=== PATIENT | male | born 1990 | race Caucasian/White ===

== ENCOUNTER 2017-01-15 22:25 | Emergency (ER) | payer SELFPAY ==
[2017-01-15] MEDS ORDERED: KETOROLAC 60 MG/2 ML VIAL IM ONE (22:39)
[2017-01-15 22:40] VITALS: RESP 20; TEMP 98.3
--- NOTE | 2017-01-15 22:45 | PDOC ---
Foot / Ankle Injury - General Chief Complaint: Lower Extremity Problem/Injury Stated Complaint: RIGHT ANKLE PAIN Date Seen by Provider: 01/15/17 Time Seen by Provider: 22:40 Source: POSITIVE: Patient, Spouse Exam Limitations: POSITIVE: No limitations Nurse's Notes Reviewed & Considered: Yes - History of Present Illness Initial Comments: Patient was working [employer] earlier today when he was chased, stepped in a hole, turned his ankle. He had difficulty ambulating subsequently with pain in the right lateral malleoli radiating into the upper foot. He denies any other injury. Have you received a tetanus shot in the past 10 years?: Yes Location: Right Ankle Timing: REPORTS: Abrupt Duration: 4-6 hours Severity: Moderate Quality: REPORTS: "Pain", Sharpness, Stabbing, Throbbing, Tenderness Location at Time of Onset: REPORTS: Home Context: REPORTS: Fall, Twist Modifying Factors: REPORTS: Movement, Rest Associated Symptoms: REPORTS: Swelling, Popping Sensation Any Prior Injuries Related to Current Complaint?: No - Patient Allergies Allergies/Adverse Reactions: Allergies Allergy/AdvReac Type Severity Reaction Status Date / Time amoxicillin [Amoxicillin] Allergy Unknown NOT Verified 01/15/17 22:31 APPLICABLE Penicillins Allergy ITCHING Verified 01/15/17 22:31 - Patient Home Medications Home Medications: Home Medications NK [No Home Medications Reported] 12/13/13 Past Medical History - heen HEENT History: Denies History Cardiovascular History: Denies History Respiratory History: Denies History Gastrointestinal History: Denies History Genitourinary History: Denies History Endocrine History: Denies History Musculoskeletal History: Denies History Prosthesis or Implant: No Neurological History: Denies History Blood Disorders: Denies History Psychiatric History: Denies History Cancer History: Denies History In Past Year Been Physically Harmed or Verbally Threatened: No History of MDRO: No Tobacco Use: Never Smoker Alcohol Use: Heavy How much alcohol do you normally drink a day?: Every other day, sometimes daily Substance Use Type: None Previous Surgical History: Yes Type / Date of Surgery: Left knee, left arm and wrist, left lower leg x 2 Significant Family History: No pertinent family hx ROS - Limitations ROS Limitations: No Limitations Constitution: REPORTS: Denies Symptoms Cardiovascular: REPORTS: Denies Cardiac Symptoms Respiratory: REPORTS: Denies Resp Symptoms Neurological: REPORTS: Denies Neuro Symptoms Gastrointestinal: REPORTS: Denies GI Symptoms Endocrine: REPORTS: Denies Symptoms Musculoskeletal: REPORTS: Joint Pain (Right ankle) Genitourinary: REPORTS: Denies Symptoms Eyes: REPORTS: Denies Symptoms ENT: REPORTS: Denies Symptoms Skin: REPORTS: Denies Skin Symptoms Lympathic: REPORTS: Denies Lympathic Symptoms Immunologic: POSITIVE: Denies Symptoms Psychiatric: POSITIVE: Denies Psych Symptoms Foot / Ankle Exam - General Appearance General Appearance: POSITIVE: Alert, Cooperative, No Acute Distress - Extremities Foot: POSITIVE: Soft Tissue Tenderness (right ankle), Bony Tenderness, Swelling , Ecchymosis, Limited ROM d/t Pain Ankle: POSITIVE: Soft-Tissue Tenderness, Bony Tenderness (right ankle), Swelling , Ecchymosis, Limited ROM Gait: POSITIVE: Limited by Pain Neuro: POSITIVE: Sensation Normal, Motor Normal Vascular: POSITIVE: No Vascular Compromise, Full Pulses Tendons: POSITIVE: Tendon Function Normal Skin: POSITIVE: Warm, Dry - HEENT HEENT: POSITIVE: Head Inspection Nml, Eyes Inspection Nml, Ears Inspection Nml, Nose Inspection Nml, PERRL, EOMI - Neck / Back Neck / Back: Normal Inspection, Non-Tender - Respiratory / CVS Respiratory / CVS: POSITIVE: Chest Non-Tender, No Respiratory Distress - Abdomen Abdomen: Denies Tenderness: (All Quadrants) Foot / Ankle Progress - Results Reviewed by me Pain Medication Addressed: POSITIVE: Yes Xrays/CTs/US Reviewed by me: Yes Discussed with Radiologist: No Radiology Results: POSITIVE: Right, Ankle, Normal - Patient's Progress Re-Examine Time:: 23:25 Status: POSITIVE: Improved MDM / ED Course: Patient was evaluated, x-ray of his right ankle were obtained. My review of his x-ray shows no acute bony abnormality. My assessment is ankle sprain. Plan is discharge home, Aircast, crutches, bear weight as tolerated, elevation ice and rest, follow-up in 7-10 days if there is no improvement. He receives a prescription for Wells, instructions in care of his ankle. - Consult Counseled: POSITIVE: Patient, Family, RE: Radiology Results, RE: DX, RE: Need for F/U Patient Care Time - Estimated PCT Patient Care Time (In Minutes): 15 Vital Signs - Recent Vital Signs Vital Signs: Vital Signs (Last 8 hours) Temp Pulse Resp BP Pulse Ox 01/15/17 22:25 98.3 F 97 20 97/60 95 - VS Reviewed Vital Signs Reviewed: Yes Discharge Clinical Impression: Sprain of ankle Discharge Disposition: Discharged to Home Condition: Stable Patient Instructions Given at Discharge: Ankle Sprain (ED)
--- NOTE | 2017-01-16 08:55 | DI ---
XR ANKLE COMPLETE MIN 3VW,01/15/2017 10:39 PM: Clinical History: Right ankle injury. Previous Exam: December 01, 2007 Findings: 3 views of the right ankle are obtained, and demonstrate anatomic alignment without fractures. The perera rrounding soft tissues are unremarkable. Impression: Normal right ankle.
== END 2017-01-15 23:48 | disposition home or self-care (01) ==
LOC: ER 22:25
DX: S93.401A Sprain of unspecified ligament of right ankle, initial encounter (principal); W17.89XA Other fall from one level to another, initial encounter
CPT/HCPCS: 73610; 96372; 99282 ×2; J1885

== ENCOUNTER 2018-10-26 14:16 | Observation (INO) ==
[2018-10-26] MEDS ORDERED: Sodium Chloride 0.9% 1,000 ML PRIMARY IV ONE (14:44)
[2018-10-26 14:55] LABS: BASOPHILS # (AUTO) 0.03 10*3/UL; BASOPHILS % (AUTO) 0.2 % (0-1); BLOOD UREA NITROGEN 15 mg/dL (7-22); BUN/CREATININE RATIO 13.63 (6-20); EOSINOPHILS # (AUTO) 0.13 10*3/UL; Hematocrit [HCT] 46.7 % (42.0-52.0); Hemoglobin [HGB] 16.3 g/dL (14.0-18.0); LIPASE 78 IU/L (23-300); LYMPHOCYTES # (AUTO) 2.11 10*3/uL; MEAN CORPUSCULAR HEMOGLOBIN 31.5 PG (27-31); MEAN CORPUSCULAR HGB CONC 34.9 g/dL (33-37); MEAN CORPUSCULAR VOLUME 90.2 FL (80-90); MEAN PLATELET VOLUME 10.4 FL (7.4-12.2); MONOCYTES # (AUTO) 0.86 10*3/UL (0.3-0.8); MONOCYTES % (AUTO) 6.3 % (5-15); NEUTROPHILS # (AUTO) 10.39 10*3/UL; NEUTROPHILS % (AUTO) 76.6 % (50-80); RED BLOOD COUNT 5.18 10^6/uL (4.70-6.10); SERUM ALBUMIN 5.1 g/dL (3.5-4.8)
[2018-10-26 14:57] LABS: PLATELET MORPHOLOGY COMMENT NORMAL MORPHOLOGY (NORM); RBC MORPHOLOGY COMMENT NORMAL MORPHOLOGY (NORM); WBC MORPHOLOGY COMMENT NORMAL MORPHOLOGY (NORM)
--- NOTE | 2018-10-26 15:56 | DI ---
CT Abdomen/Pelvis W Contrast 10/26/2018 2:45 PM History: [facility] [place] DI ^Abdominal Pain Comparison: None. Technique: Imaging was performed with a multi-detector CT scanner. Data acquisition was obtained from the dome of the diaphragm through the pubic symphysis without oral contrast and after the uneventful administration of 75 mL of Isovue intravenous contrast material. Multiplanar reformations were perfo rmed. Findings: The distal appendix is dilated up to 10 mm in greatest dimension. Although there is some in traluminal gas, there is mild appendiceal wall enhancement and periappendiceal fat stranding. These f indings raise concern for acute appendicitis in the correct clinical setting. There is no extralumina l gas or formed fluid collection to suggest rupture. There is normal CT appearance of the liver, gallbladder, adrenal glands, spleen, kidneys, and pancrea s. Hollow viscus organs demonstrate normal course and caliber. There is no free intraperitoneal air o r fluid. No abdominopelvic lymphadenopathy is present. Vascular structures are intact. There is no in guinal or abdominal wall hernia. The osseous structures are within normal limits for the patient's age. There is mild bilateral gyneco mastia. The lung bases are clear. Mild distention of the distal esophagus could represent normal peristalsis, although a hiatal hernia or esophageal diverticulum could have a similar appearance. Impression: 1. There are findings concerning for acute appendicitis. Clinical and laboratory correlation is recom mended. 2. Mild distention of the distal esophagus could represent normal peristalsis, although a hiatal janet ia or esophageal diverticulum could have a similar appearance. 3. Mild bilateral gynecomastia.
[2018-10-26] MEDS ORDERED: Ertapenem Inj 1 GM in Sodium Chloride 0.9% 100 ML IV ONE (16:13)
[2018-10-26 16:19] LABS: BILIRUBIN,URINE NEGATIVE (NEG); CLARITY,URINE CLEAR (CLEAR); COLOR,URINE YELLOW (Y); GLUCOSE, URINE (UA) NEGATIVE (NEG); OCCULT BLOOD,URINE NEGATIVE (NEG); PROTEIN,URINE NEGATIVE (NEG); UROBILINOGEN,URINE 0.2 EU/dL (0.2)
[2018-10-26 16:20] LABS: URINE SAMPLE TYPE VOIDED SPECIMEN
[2018-10-26] MEDS ORDERED: LIDOCAINE MPF 2% - 5 ML (20 MG/1 ML) ONE (16:45)
[2018-10-26] MEDS ORDERED: MIDAZOLAM 5 MG/1 ML ONE (16:45)
[2018-10-26] MEDS ORDERED: fentaNYL Inj 250 MCG/5 ML VIAL ONE (16:45)
[2018-10-26] MEDS ORDERED: PROPOFOL 10 MG/1 ML (200 MG/20 ML) VIAL IV ONE (16:45)
[2018-10-26] MEDS ORDERED: ROCURONIUM 10 MG/1 ML - 5 ML VIAL IVP ONE (16:48)
--- NOTE | 2018-10-26 16:51 | PDOC ---
HPI - History of Present Illness Date of Service: 10/26/18 Time of Service: 16:47 Chief Complaint: 28-year-old male that started having right lower quadrant abdominal pain on 10/24/2018. Changes progressively got worse. History of Present Illness: Patient's been having pain since Friday. The pain began progressively worse. Patient came in to be evaluated by Dr. Nelson the emergency room. Patient has had a CAT scan which was read by Dr. Bill as early appendicitis. Patient has an elevated white count at 13,000. He denies any fevers. Past Medical History Tobacco Use: Never Smoker In the Past 12 Months, Have Used or Abuse Any of the Following Substance: None Medication / Allergies Home Medications: Home Medications Medication Instructions Recorded Confirmed Type NK [No Home Medications Reported] 12/13/13 10/26/18 History Allergies/Adverse Reactions: Allergies Allergy/AdvReac Type Severity Reaction Status Date / Time amoxicillin [Amoxicillin] Allergy Unknown NOT Verified 10/26/18 15:09 APPLICABLE Penicillins Allergy ITCHING Verified 10/26/18 15:09 Exam - Vitals Vital Signs: Vital Signs Temperature 97.3 F Temperature Source Temporal Artery Scan Pulse Rate [Bilateral Radial] 77 Respiratory Rate 18 Blood Pressure [Left Arm] 139/109 Pulse Ox 96 Oxygen Delivery Method Room Air Height 5 ft 9 in Weight 188 lb - General General Appearance: No Acute Distress, Cooperative - Head Head Exam: Normocephalic - Eye Eye Exam: POSITIVE: PERRL, EOMI - Neck Neck Exam: Full ROM, No Tenderness - Respiratory Respiratory Exam: POSITIVE: Clear to Auscultation - Bilaterally, Breathing Non Labored - Cardiovascular Cardiovascular Exam: POSITIVE: No Murmur - GI/Abdominal GI/Abdominal Exam: POSITIVE: Normal Bowel Sounds, Non Distended, Soft, Positive for RUQ Pain, No Hepatomegaly, Splenomegaly Results - Labs CBC and BMP: 10/26/18 14:32 10/26/18 14:32 Assessment and Plan - Patient Problems (1) Acute appendicitis with localized peritonitis Current Visit: Yes Status: Acute Code(s): K35.30 - Acute appendicitis with localized peritonitis, without perforation or gangrene - Assessment / Plan Additional Assessment/Plan Details: I discussed with the patient treatment options was gluteal antibiotic therapy versus surgery. He like to have surgery. Also discussed lab scopic versus open he would like laparoscopic. Risks benefits were discussed he understands these. Given 1 dose of Invanz prior to going to surgery.
[2018-10-26] MEDS ORDERED: BUPivacaine Inj 0.25% PF - 10ml vial ONE (16:58)
[2018-10-26] MEDS ORDERED: Lactated Ringers 1,000 ML PRIMARY IV ONE (17:00)
[2018-10-26] MEDS ORDERED: Lactated Ringers 1,000 ML PRIMARY IV SCH (17:00)
[2018-10-26] MEDS ORDERED: SUFENTANIL 50 MCG/1 ML ONE (17:22)
[2018-10-26] MEDS ORDERED: KETAMINE HCL 100 MG/2 ML SYRINGE IV ONE (17:24)
[2018-10-26] MEDS ORDERED: KETOROLAC 30 MG/1 ML VIAL ONE (17:51)
[2018-10-26] MEDS ORDERED: SUGAMMADEX SODIUM 200 MG/2 ML VIAL IV ONE (17:56)
--- NOTE | 2018-10-26 18:11 | GEN.OPNOTE ---
Operative Note Surgery Date: 10/26/18 Preoperative Diagnosis: Acute appendicitis with localized peritonitis Postoperative Diagnosis: Same Procedure: Laparoscopic appendectomy Surgeon: Godfrey Saucedo MD Anesthesia Provider: Nghia Linares CRNA Anesthesia Type: General Estimated Blood Loss (mL): 10 Fluids: Lactated Ringer's please see anesthesia notes EMR. 1 g of Invanz given in the emergency department. Toradol given please see anesthesia notes Pathology: Appendix sent Indications: Acute appendicitis Findings: Acute appendicitis nonperforated Complications: None Operative Summary: Patient is brought in operative room placed in supine position given endotracheal anesthesia. Prepped draped sterile fashion. Timeout performed per protocols. I then infiltrated 0.5 Marcaine below the umbilicus. Small incision was made. Veress needle is inserted. Water flowed freely into the Veress needle. Negative aspiration for enteric contacts. Pneumoperitoneum obtained by a insufflating CO2. After an adequate pneumoperitoneum I used the Visiport place a 10 mm trocar. I did inject laparoscopic visualization a 5 mm placed suprapubically. (Patient did void prior to coming to surgery). I then inspected the patient had acute appendicitis but not perforated. 10 mm trochars placed in the left lower quadrant. Appropriate anesthesia was obtained. Appendix is grasped. I then used the ligature to cut through ligated the mesoappendix. Put 3 Endoloops on to next to the base of the cecum and one slightly higher. Using the ligature I cauterize and cut the appendix. We then irrigated until clear. We reinspected is no active bleeding. I removed the appendix is a 10 mm trocar. We reinspected there is no apparent injury. No bleeding. I deinsufflated the pneumoperitoneum. Removed all trochars. There is only 5 mL defects in the fascia so they were not closed. Closed the skin using 4-0 Monocryl simple interrupted subcuticular stitches. Steri-Strips applied. Sterile dressings applied. Patient transferred recovery room in stable condition. Patient Problems - Patient Problem List (1) Acute appendicitis with localized peritonitis Current Visit: Yes Status: Acute Code(s): K35.30 - Acute appendicitis with localized peritonitis, without perforation or gangrene Category: Medical Procedure Codes - Surgical Procedures Primary Surgical Procedure: [id number] : Appendectomy, Lap
--- NOTE | 2018-10-26 18:22 | CRNA.PROGR ---
Anesthesia Time - Procedure/Recovery Time Start Date: 10/26/18 End Date: 10/26/18 Anesthesia : Time In: 17:12 Anesthesia : Time Out: 18:21 Anesthesia : Total Time: 69 - Total Anesthesia Time Total Anesthesia Time (minutes): 69 - Other Weight: 85.275 kg Height: 5 ft 9 in Body Mass Index (BMI): 27.7 Physical Status: P1 Anesthesia Type: General Anesthesia : ET
--- NOTE | 2018-10-26 18:22 | CRNA.PROGR ---
Anesthesia Recovery Phase I - Post Anesthesia Evaluation Patient's Condition on Arrival in Phase I: Stable Patient's Condition on Arrival in Phase II: Stable Pain Level: 1
[2018-10-26] MEDS ORDERED: HYDROmorphone 2 MG/1 ML IVP PRN (18:23)
[2018-10-26] MEDS ORDERED: ONDANSETRON 4 MG/2 ML VIAL IVP PRN (18:23)
[2018-10-26] MEDS ORDERED: LIDOCAINE W/ SODIUM BICARB 0.5 ML SYR SUBD PRN (18:23)
[2018-10-26] MEDS ORDERED: D5-LR 1,000 ML PRIMARY IV SCH (19:02)
[2018-10-26] MEDS ORDERED: NALOXONE 0.4 MG/1 ML VIAL IVP PRN (19:02)
[2018-10-26] MEDS ORDERED: HYDROcodone-APAP 5 MG -325 MG TABLET PO PRN (19:02)
[2018-10-26] MEDS ORDERED: KETOROLAC 15 MG/1 ML VIAL IVP PRN (19:02)
[2018-10-26] MEDS ORDERED: MORPHINE SULFATE 2 MG/1 ML IVP PRN (19:02)
--- NOTE | 2018-10-27 01:12 | PDOC ---
Abdomen/Flank HPI - General Chief Complaint: Abdomen Pain Stated Complaint: RIGHT LOWER QUADRANT PAIN Date Seen by Provider: 10/26/18 Time Seen by Provider: 14:35 Source: POSITIVE: Patient Exam Limitations: POSITIVE: No limitations Nurse's Notes Reviewed & Considered: Yes - History of Present Illness Initial Comments: The patient is a 28-year-old male. He presents to the emergency room complaining of a 2-3 day history of right sided abdominal pain. No known fevers or chills. No nausea, vomiting, diarrhea, dysuria, hematuria, hematochezia, hematemesis or fevers. He states he has had no previous abdominal surgery. He's on no medications and has no known chronic medical problems. Body Location Affected: REPORTS: Abdomen (Right lower quadrant) Timing: REPORTS: Gradual, Getting Worse Duration: >24 hours (3-4 days) Severity: Moderate Quality: REPORTS: "Pain" Abdominal Pain Onset Location: REPORTS: RLQ Abdominal Pain Radiation: REPORTS: No radiation Context: REPORTS: None Modifying Factors: improves with: Movement, Walking Associated Symptoms: DENIES: Denies symptoms, Back pain, Bloody Emesis, Chest pain, Coffee Grounds Emesis, Chills, Diaphoresis, Fever, Fatigue, Headache, Heartburn, Loss of Appetite, Nausea, Rash, Shortness of breath, Swelling/mass in abdomen, Syncope, Testicular Pain, Vomiting, Weakness, Grossly Bloody Diarrhea, Constipation, Diarrhea, Dysuria, Incontinent Stool, Incontinent Urine, Mucous Diarrhea, Difficulty Walking, Dizziness, Light Headedness, Numbness, Other Similar Symptoms Previously: No Recent Care Received: REPORTS: Denies Any Prior Injuries Related to Current Complaint?: No - Patient Home Medications Home Medications: Home Medications NK [No Home Medications Reported] 12/13/13 - Patient Allergies Allergies/Adverse Reactions: Allergies Allergy/AdvReac Type Severity Reaction Status Date / Time amoxicillin [Amoxicillin] Allergy Unknown NOT Verified 10/26/18 15:09 APPLICABLE Penicillins Allergy ITCHING Verified 10/26/18 15:09 Past Medical History - heen HEENT History: Denies History Cardiovascular History: Denies History Respiratory History: Denies History Gastrointestinal History: Denies History Genitourinary History: Denies History Endocrine History: Denies History Musculoskeletal History: Denies History Prosthesis or Implant: No Neurological History: Denies History Blood Disorders: Denies History Psychiatric History: Denies History History of Sexually Transmitted Diseases: No Cancer History: Denies History In Past Year Been Physically Harmed or Verbally Threatened: No History of MDRO: No History of Other Communicable Diseases: No Tobacco Use: Never Smoker Alcohol Use: Heavy Type of alcohol normally used: Hard Liquor In the Past 12 Months, Have Used or Abuse Any Substance: None Previous Surgical History: Yes Type / Date of Surgery: Left knee, left arm and wrist, left lower leg x 2 Anesthesia Reactions: No Malignant Hyperthermia: No Significant Family History: No pertinent family hx Past Medical History Reviewed: Reviewed - No Changes ROS - Limitations ROS Limitations: No Limitations Constitution: REPORTS: Denies Symptoms Cardiovascular: REPORTS: Denies Cardiac Symptoms Respiratory: REPORTS: Denies Resp Symptoms Neurological: REPORTS: Denies Neuro Symptoms Gastrointestinal: REPORTS: Abdominal Pain Endocrine: REPORTS: Denies Symptoms Musculoskeletal: REPORTS: Denies MS Symptoms Genitourinary: REPORTS: Denies Symptoms Eyes: REPORTS: Denies Symptoms ENT: REPORTS: Denies Symptoms Skin: REPORTS: Denies Skin Symptoms Lympathic: REPORTS: Denies Lympathic Symptoms Immunologic: POSITIVE: Denies Symptoms Psychiatric: POSITIVE: Denies Psych Symptoms Abdominal/Flank Pain PE - General Appearance General Appearance: POSITIVE: Alert, Cooperative, No Acute Distress, No Evidence of Trauma - HEENT HEENT: POSITIVE: Head Inspection Nml, Eyes Inspection Nml, Ears Inspection Nml, Nose Inspection Nml, Oral/Dental Inspect. Nml, Pharynx Inspect. Nml, PERRL, EOMI - Neck Neck: POSITIVE: Normal Inspection, No Apparent Injury - Respiratory Respiratory: POSITIVE: No Respiratory Distress, Breath Sounds Normal, Chest Non- Tender - Cardiovascular Cardiovascular: POSITIVE: Regular Rate and Rhythm, Heart Sounds Normal, Equal Pulses, Strong Pulses Peripheral Pulses: Radial (R): 2+, Radial (L): 2+ - Abdomen Abdomen: Soft: (All Quadrants), Denies Tenderness: (LUQ), (LLQ), (RUQ), No Splenomegaly: (All Quadrants), No Hepatomegaly: (All Quadrants), No Guarding: (All Quadrants), No Rebound: (All Quadrants), No Palpable Pulse: (All Quadrant s), No Palpabale Mass: (All Quadrants), No Distention: (All Quadrants), No Rigidity: (All Quadrants), Tenderness Noted: (RLQ), Guarding: (RLQ) Additional Abdominal Details: Abdominal examination shows bowel sounds to be present but probably somewhat depressed. Patient has pain on direct palpation over the right lower quadrant and right paraumbilical area of the abdomen. Some rebound over this area. No masses or organomegaly. - Genital / Rectal Male Genital: POSITIVE: Normal Inspection - Back Back: POSITIVE: Normal Inspection. NEGATIVE: CVA Tenderness (R), CVA Tenderness (L) - Skin Skin: POSITIVE: Intact, Normal For Race, Warm, Dry, No Rash - Extremities Extremity: Non-Tender: (All Extremities), Normal ROM: (All Extremities), Normal Inspection: (All Extremities) - Neurological Neurological: POSITIVE: Affect Apporpriate, Oriented X3, fitness plan coordinator Normal As Tested, Motor Normal, Sensation Normal - Psychological Psychiatric: POSITIVE: Affect Appropriate, Mood Appropriate Images - Complete Complete: 1 - Area of abdominal pain Abdomen Progress - Results Reviewed by me Xrays/CTs/US Reviewed by me: Yes Discussed with Radiologist: Yes Radiology Findings: CT scan abdomen and pelvis with IV contrast compatible with acute appendicitis CBC and BMP: 10/26/18 14:32 10/26/18 14:32 Lab Results:: Laboratory Results 10/26/18 10/26/18 10/26/18 14:32 14:32 15:55 WBC 13.57 H RBC 5.18 Hgb 16.3 Hct 46.7 MCV 90.2 H MCH 31.5 H MCHC 34.9 RDW Std Deviation 39.3 RDW Coeff of Henry 12.0 Plt Count 249 MPV 10.4 Immature Gran % (Auto) 0.4 Neut % (Auto) 76.6 Lymph % (Auto) 15.5 Howell % (Auto) 6.3 Eos % (Auto) 1.0 Baso % (Auto) 0.2 Immature Gran # (Auto) 0.05 Neut # (Auto) 10.39 Lymph # (Auto) 2.11 Howell # (Auto) 0.86 H Eos # (Auto) 0.13 Baso # (Auto) 0.03 WBC Morphology Comment Normal morphology Plt Morphology Comment Normal morphology RBC Morph Comment Normal morphology Sodium 143 Potassium 4.2 Chloride 104 Carbon Dioxide 25 Anion Gap 14 BUN 15 Creatinine 1.1 Estimated GFR > 60 BUN/Creatinine Ratio 13.63 Glucose 95 Calculated Osmolality 296.0 H Calcium 10.2 Total Bilirubin 0.7 AST 31 ALT 55 Alkaline Phosphatase 111 Total Protein 8.4 H Albumin 5.1 H Globulin 3.3 Albumin/Globulin Ratio 1.50 Amylase 82 Lipase 78 Ur Collection Type Voided specimen Urine Color Yellow Urine Clarity Clear Urine pH 6.0 Ur Specific Freeman 1.010 Urine Protein Negative Urine Glucose (UA) Negative Urine Ketones Negative Urine Occult Blood Negative Urine Nitrate Negative Urine Bilirubin Negative Urine Urobilinogen 0.2 Ur Leukocyte Esterase Negative Ur Culture Indicated? Culture not set - Patient's Progress Pain Medication Addressed: POSITIVE: Patient Refused School/Work Release Addressed: POSITIVE: Not Applicable Re-examine Time: 16:10 Re-Examine Comment: Patient advised that he has appendicitis. Patient kept nothing by mouth. Patient declined any analgesia. Case discussed with surgeon propagation manager, , will come to the emergency room to further evaluate and treat. Status: POSITIVE: Unchanged, Re-Examined - Consult Consult (If Yes, Name of Consulting MD & Time Called): Yes (Dr. Ernandez, surgeon [id number],) Consulting MD will see pt:: POSITIVE: In ED, [facility] [place] Admit Counseled: POSITIVE: Patient, RE: Lab Results, RE: Radiology Results, RE: DX, RE: Need for F/U Patient Care Time - Estimated PCT Patient Care Time (In Minutes): 45 Vital Signs - VS Reviewed Vital Signs Reviewed: Yes Discharge Clinical Impression: Appendicitis Discharge Disposition: Transferred to OR Condition: Stable Date Decision to Admit to Inpatient: 10/26/18 Time Decision to Admit to Inpatient: 16:10
[2018-10-27] MEDS ORDERED: KETOROLAC 15 MG/1 ML VIAL ONE (05:36)
--- NOTE | 2018-10-27 07:35 | CRNA.PROGR ---
Anesthesia Note - Progress Notes Anesthesia Progress Note: Post OP Anesthesia Note Pt is lying in bed resting comfortably. He states that he slept very well and feels much better. Only complains of a little shoulder pain from trapped CO2. He has been up ambulating, has been able to tolerate a regular diet. current VS are stable. Vital Signs - Last Taken Temperature 98.2 F 10/27/18 05:34 Pulse Rate 84 10/27/18 05:34 Respiratory Rate 16 10/27/18 05:34 Blood Pressure 125/73 10/27/18 05:34 Pulse Ox 93 10/27/18 05:34
[2018-10-27 07:46] VITALS: BP 106/71; RESP 18; TEMP 97; O2SAT 94
--- NOTE | 2018-10-27 09:03 | DCSUMMARY ---
Discharge Summary Admit Date: 10/26/18 Discharge Date: 10/27/18 Admitting Diagnosis: acute appendicitis with localized peritonitis Discharge Diagnosis: Acute appendicitis localized peritonitis Primary Surgery and Date: 10/26/2018 patient had an appendectomy laparoscopic Hospital Course: Patient is admitted to the hospital observation when same day surgery had an appendectomy laparoscopically had nonruptured appendix. Surgery well. First postoperative day patient is doing well his be discharged home. Take ibuprofen for pain. Rated. Exam - Vitals Vital Signs: Vital Signs Temperature 97 F Temperature Source Temporal Artery Scan Pulse Rate [Pulse Oximeter] 82 Pulse Rate [Bilateral Radial] 77 Pulse Rate 99 Respiratory Rate 18 Blood Pressure [Left Arm] 106/71 Blood Pressure 140/92 Pulse Ox 94 Oxygen Flow Rate 2 Oxygen Delivery Method Room Air Height 5 ft 8 in Weight 188 lb - General General Appearance: No Acute Distress, Cooperative - GI/Abdominal GI/Abdominal Exam: POSITIVE: Normal Bowel Sounds, Non Tender, Non Distended, Soft Patient Problems - Patient Problem List (1) Acute appendicitis with localized peritonitis Current Visit: No Status: Acute Code(s): K35.30 - Acute appendicitis with localized peritonitis, without perforation or gangrene Category: Medical
== END 2018-10-27 09:56 | disposition home or self-care (01) ==
LOC: ER 14:16 → OR 17:01 → MED/SURG 17:01 → OPS 17:01 → MED/SURG 18:45 → OR 18:46
PROVIDERS: ADMIT Surgery; ATTEND Surgery